=== PATIENT | male | born 1965 | race Caucasian/White ===

== ENCOUNTER 2021-01-25 14:20 | Emergency (ER) | payer OTHER ==
[2021-01-25] MEDS ORDERED: IBUPROFEN800 MG PO (20:49)
[2021-01-25] MEDS ORDERED: NORCO 5-325 TA1 EACH PO (20:49)
[2021-01-25] MEDS ORDERED: ILOTYCIN1 GM OU (20:49)
== END 2021-01-25 21:15 | disposition home or self-care (01) ==
LOC: FER 14:20
DX: T15.01XA Foreign body in cornea, right eye, initial encounter (principal); I10 Essential (primary) hypertension; Z88.0 Allergy status to penicillin
CPT/HCPCS: 99283